=== PATIENT | male | born 1980 | race Caucasian/White ===

== ENCOUNTER → 2021-04-13 | Outpatient (CLI) | payer OTHER, MEDICAID ==
[~2021-04-13] VITALS: Ht 182.9 cm; Wt 98.5 kg
[~2021-04-13] MED LIST: AMBIEN 10MG10 MG PO; TOPROL XL 50MG50 MG PO; XANAX2 MG PO; ZOLOFT 100MG100 MG PO
[2021-04-13 07:32] VITALS: BP 166/94; PULSE 53; TEMP 98.5
[2021-04-13 08:21] VITALS: BP 164/88; PULSE 57
== END ==
LOC: COL.RAD 07:00
DX: M51.36 Other intervertebral disc degeneration, lumbar region (principal); M48.061 Spinal stenosis, lumbar region without neurogenic claudication; M51.26 Other intervertebral disc displacement, lumbar region
CPT/HCPCS: J3301

== ENCOUNTER → 2021-08-02 | Outpatient (CLI) | payer OTHER, MEDICAID ==
--- NOTE | 2021-07-28 08:26 | NUR ---
Called left message on phone for procedure on Thursday 08/02 instructions left on phone. Called [phone]
[~2021-08-02] VITALS: Ht 182.9 cm; Wt 88.3 kg
[~2021-08-02] MED LIST changes: +EFFEXOR-XR150 MG PO
[2021-08-02 08:46] VITALS: BP 133/86; PULSE 57; TEMP 97.9
[2021-08-02 09:49] VITALS: BP 133/80; PULSE 58
== END ==
LOC: COL.RAD 06-30 12:30
DX: M54.16 Radiculopathy, lumbar region (principal)
CPT/HCPCS: J1100; J3301